=== PATIENT | male | born 2000 | race American Indian/Alaskan Native ===

== ENCOUNTER 2019-08-24 10:49 | Emergency (ER) | payer SELFPAY ==
[2019-08-24 11:18] VITALS: BP 108/61
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
--- NOTE | 2019-08-24 12:23 | XRay Report ---
LEFT SHOULDER, 3 VIEWS INDICATION: pain. COMPARISON: None. IMPRESSION: No acute osseous or soft tissue abnormality. No significant DJD. Signer Name: Lazarus Maddox Jr, MD Signed: 08/24/2019 12:19 PM Workstation Name: [id number]
[2019-08-24] MEDS ORDERED: ACETAMINOPHEN 325 MG TAB PO ONE (14:53)
[2019-08-24] MEDS ORDERED: IBUPROFEN 600 MG TAB PO ONE (14:53)
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
== END 2019-08-24 16:35 | disposition home or self-care (01) ==
LOC: ED 10:49
DX: M79.18 Myalgia, other site (principal); M54.9 Dorsalgia, unspecified
CPT/HCPCS: 93005; 93010